=== PATIENT | male | born 1945 | race Two or more races ===

== ENCOUNTER 2017-07-05 22:59 | Inpatient (IN) | payer MEDICARE, MEDICAID ==
[~2017-07-05] VITALS: Ht 172.7 cm; Wt 80.5 kg
[2017-07-05 22:35] VITALS: BP 139/64
[2017-07-06] VITALS (14 sets, daily range): BP systolic 117–157; BP diastolic 64–96
[2017-07-06] MEDS ORDERED: ACET-2178 PO (00:01)
[2017-07-06] MEDS ORDERED: PANT40TA4 IVP (00:01)
[2017-07-06] MEDS ORDERED: TEMA15CA PO (00:01)
[2017-07-06] MEDS ORDERED: SIMV10TA6 PO (00:01)
[2017-07-06] MEDS ORDERED: METF500T4 PO (00:01)
[2017-07-06] MEDS ORDERED: LEVO50TA8 PO (00:01)
[2017-07-06] MEDS ORDERED: VANC1PLA IV (00:01)
[2017-07-06] MEDS ORDERED: PIPE3.377 IV (00:01)
[2017-07-06] MEDS ORDERED: ALLO100T PO (00:01)
[2017-07-06] MEDS ORDERED: GUAI-735 PO (00:01)
[2017-07-06] MEDS ORDERED: AMLO10TA80 PO (00:01)
[2017-07-06] MEDS ORDERED: LOSA50TA20 PO (00:01)
[2017-07-06] MEDS ORDERED: CLON0.1T PO (00:01)
[2017-07-06] MEDS ORDERED: METH4TAB17 IVP (00:01)
[2017-07-06] MEDS ORDERED: GLUC1VIA6 IM (00:01)
[2017-07-06] MEDS ORDERED: [UNRECOGNIZED DRUG - OTHER] PO SCH (00:30)
[2017-07-06] MEDS ORDERED: [UNRECOGNIZED DRUG - OTHER] IV SCH (00:30)
[2017-07-06] MEDS ORDERED: [UNRECOGNIZED DRUG - OTHER] IV SCH (00:30)
[2017-07-06] MEDS ORDERED: ACETAMINOPHEN 325MG TABLET PO PRN (00:30)
[2017-07-06] MEDS ORDERED: CODEINE PHOS PO SCH (00:30)
[2017-07-06] MEDS ORDERED: DEXT 5%/0.45% NACL 1000ML 1,000 ML IV SCH (00:30)
[2017-07-06] MEDS ORDERED: GUAIFENESIN PO SCH (00:30)
[2017-07-06] MEDS ORDERED: VANCOMYCIN HCL IN DEXTROSE IV SCH (00:30)
[2017-07-06] MEDS ORDERED: GUAIFENESIN-DM 200MG-20MG/10ML UDC PO PRN (01:15)
[2017-07-06] MEDS ORDERED: DEXTROSE 50% WATER 50ML SYRINGE IV PRN (02:45)
[2017-07-06] MEDS: IPRATROPIUM/ALBUTEROL 0.5-3(2.5)MG/3ML NEB HHN SCH ×5 (04:29→21:25)
[2017-07-06] MEDS ORDERED: PIPERACILLIN/TAZ 3.375G PREMIX 50 ML IV NR (05:00)
[2017-07-06 05:53] LABS: INR 1.1
[2017-07-06 05:55] LABS: BASOPHILS % 0.3 % (0.0-2.0); EOSINOPHILS % 1.3 % (0.0-5.0); HEMATOCRIT. 35.8 % (42.0-52.0); HEMOGLOBIN. 11.9 g/dL (14.0-18.0); LYMPHOCYTES % 10.5 % (20.0-50.0); MEAN CORPUSCULAR HEMOGLOBIN 30.2 pg (28.0-32.0); MEAN CORPUSCULAR VOLUME 91.1 fL (80.0-94.0); MEAN PLATELET VOLUME 9.5 fl (7.4-10.4); NEUTROPHILS % 82.9 % (40.0-76.0); PLATELET 171 x1000/uL (130-400); RED BLOOD CELL COUNT 3.93 mill/uL (4.7-6.1); RED CELL DISTRIBUTION WIDTH 14.9 % (11.6-14.6)
[2017-07-06] MEDS ORDERED: VANCOMYCIN 1 G PREMIX 200 ML IV NR (06:00)
[2017-07-06] MEDS: BLOOD SUGAR DIAGNOSTIC STRIP TEST SCH ×4 (06:09→21:00)
[2017-07-06 06:35] LABS: CHLORIDE 102 mEq/L (98-107)
[2017-07-06] MEDS: LEVOTHYROXINE SODIUM 50MCG TABLET PO SCH (06:37)
[2017-07-06] MEDS: METFORMIN HCL 500MG TABLET PO SCH ×2 (07:50→17:50)
[2017-07-06] MEDS ORDERED: METFORMIN HCL 500MG TABLET PO NR (07:50)
[2017-07-06] MEDS: INSULIN LISPRO 100 UNITS/ML SUBCUT SCH ×4 (07:50→21:00)
[2017-07-06] MEDS: METHYLPREDNISOLONE SOD SUCC 40 MG/ML VIAL IV SCH (08:43)
[2017-07-06] MEDS: PANTOPRAZOLE SODIUM 40 MG/VIAL IV SCH (08:43)
[2017-07-06] MEDS: ALLOPURINOL 100 MG TABLET PO SCH (09:00)
[2017-07-06] MEDS: CLONIDINE 0.1MG TABLET PO SCH ×2 (09:00→21:00)
[2017-07-06] MEDS: LOSARTAN POTASSIUM 50 MG TABLET PO SCH ×2 (09:00→21:00)
[2017-07-06] MEDS: AMLODIPINE 10MG TABLET PO SCH (10:31)
[2017-07-06 11:42] LABS: T4 FREE 1.33 ng/dL (0.76-1.46)
[2017-07-06] MEDS ORDERED: PIPERACILLIN/TAZ 3.375G PREMIX 50 ML IV SCH (13:30)
[2017-07-06] MEDS ORDERED: NEOSTIGMINE METHYLSULFATE 1MG/ML 10 ML VIAL ONE (16:21)
[2017-07-06] MEDS ORDERED: ROCURONIUM BROMIDE 10MG/ML VIAL 5ML IV ONE (16:21)
[2017-07-06] MEDS ORDERED: FENTANYL CITRATE/PF 50MCG/ML 2ML VIAL ONE ×2 (16:21→17:36)
[2017-07-06] MEDS ORDERED: PROPOFOL 200MG/20ML VIAL IV ONE (16:22)
[2017-07-06] MEDS ORDERED: GLYCOPYRROLATE 0.2 MG/ML 2ML VIAL ONE ×2 (16:22→17:22)
[2017-07-06] MEDS ORDERED: MIDAZOLAM HCL 2 MG/2 ML VIAL ONE (16:22)
[2017-07-06] MEDS ORDERED: DEXAMETHASONE 4MG/ML 1ML VIAL ONE (16:23)
[2017-07-06] MEDS ORDERED: SUCCINYLCHOLINE CHLORIDE 200MG/10ML VIAL IV ONE (16:23)
[2017-07-06] MEDS ORDERED: ONDANSETRON HCL 4MG/2ML VIAL ONE (16:23)
[2017-07-06] MEDS ORDERED: LABETALOL HCL 5MG/ML VIAL 20ML IV ONE (16:28)
[2017-07-06] MEDS ORDERED: LIDOCAINE HCL/PF 1% 10 MG/ML 5ML VIAL ONE (16:29)
[2017-07-06 16:53] LABS: CREATINE KINASE 31 IU/L (39-308)
[2017-07-06 16:54] LABS: CREATINE KINASE MB FRACTION 1.1 ng/mL (0.5-3.6)
[2017-07-06] MEDS ORDERED: ONDANSETRON HCL 4MG/2ML VIAL IV PRN (17:00)
[2017-07-06] MEDS ORDERED: LABETALOL 5MG/ML SYR 20 MG/4 ML SYRINGE IV PRN (17:00)
[2017-07-06] MEDS ORDERED: MEDICATION NOT ON FORMULARY EA (Simvastatin 1 TAB) PO SCH (17:00)
[2017-07-06] MEDS ORDERED: MEPERIDINE HCL/PF 25MG/ML CPJ IV PRN (17:00)
[2017-07-06] MEDS ORDERED: SKIN ADHESIVE 0.7 GM EA TOP ONE (17:12)
[2017-07-06] MEDS ORDERED: BACITRACIN ZINC 15GM TUBE TOP ONE (17:12)
[2017-07-06] MEDS: HYDROMORPHONE HCL/PF 2MG/ML CPJ IV PRN ×2 (18:13→19:00)
[2017-07-06 20:51] LABS: BG BASE EXCESS 3.4 mmol/L (-2.0-2.0); BG DEOXYHEMOGLOBIN 3.6 % (0.0-5.0); BG FRACTION INSPIRED OXYGEN 60; BG HCO3 ACT 30.7 mmol/L (22.0-26.0); BG METHEMOGLOBIN 0.2 % (0.0-1.5); BG OXYGEN SATURATION 96.4 % (92.0-98.5); BG OXYHEMOGLOBIN 95.2 % (94.0-97.0); BG PCO2 57.8 mmHg (35.0-45.0); BG PH 7.343 (7.350-7.450); BG PO2 97.9 mmHg (75.0-100.0); BG SAMPLE SITE LEFT RADIAL; BG TOTAL HEMOGLOBIN 14.3 g/dL (12.0-18.0); BG VENT MODE MASK - SIMPLE
[2017-07-06] MEDS: ATORVASTATIN CALCIUM 10MG TABLET PO SCH (21:00)
[2017-07-06] MEDS: DEXT 5%/0.45% NACL KCL 20MEQ/L 1,000 ML IV SCH (21:56)
[2017-07-06 22:41] LABS: HEMATOCRIT. 37.7 % (42.0-52.0); HEMOGLOBIN. 12.3 g/dL (14.0-18.0); MEAN CORPUSCULAR HEMOGLOBIN 30.1 pg (28.0-32.0); MEAN CORPUSCULAR VOLUME 92.2 fL (80.0-94.0); MEAN PLATELET VOLUME 9.3 fl (7.4-10.4); PLATELET 195 x1000/uL (130-400); RED BLOOD CELL COUNT 4.09 mill/uL (4.7-6.1); RED CELL DISTRIBUTION WIDTH 14.7 % (11.6-14.6)
[2017-07-06 22:46] LABS: CHLORIDE 103 mEq/L (98-107)
[2017-07-06 22:47] LABS: PARTIAL THROMBOPLASTIN TIME 21.1 sec (23.4-31.0); PROTHROMBIN TIME 10.8 sec (9.4-11.6)
[2017-07-06 22:58] LABS: CREATINE KINASE 238 IU/L (39-308)
[2017-07-06 22:59] LABS: CREATINE KINASE MB FRACTION 2.3 ng/mL (0.5-3.6)
[2017-07-06 23:13] LABS: PLATELET ESTIMATE NORMAL
[2017-07-06] MEDS: PIPERACILLIN/TAZ 3.375G PREMIX 50 ML IV SCH (23:44)
[2017-07-07] VITALS (23 sets, daily range): BP systolic 108–175; BP diastolic 60–99
[2017-07-07] MEDS: IPRATROPIUM/ALBUTEROL 0.5-3(2.5)MG/3ML NEB HHN SCH ×6 (00:20→20:12)
[2017-07-07] MEDS: METFORMIN HCL 500MG TABLET PO SCH ×2 (05:46→17:17)
[2017-07-07] MEDS: PIPERACILLIN/TAZ 3.375G PREMIX 50 ML IV SCH ×3 (05:46→17:17)
[2017-07-07] MEDS: BLOOD SUGAR DIAGNOSTIC STRIP TEST SCH ×4 (06:09→21:54)
[2017-07-07] MEDS: INSULIN LISPRO 100 UNITS/ML SUBCUT SCH ×4 (06:15→21:52)
[2017-07-07 06:39] LABS: CREATINE KINASE 257 IU/L (39-308)
[2017-07-07 06:40] LABS: CREATINE KINASE MB FRACTION 1.7 ng/mL (0.5-3.6)
[2017-07-07] MEDS: PANTOPRAZOLE SODIUM 40 MG/VIAL IV SCH (10:00)
[2017-07-07] MEDS: ALLOPURINOL 100 MG TABLET PO SCH (10:00)
[2017-07-07] MEDS: AMLODIPINE 10MG TABLET PO SCH (10:00)
[2017-07-07] MEDS: LOSARTAN POTASSIUM 50 MG TABLET PO SCH ×2 (10:00→21:26)
[2017-07-07] MEDS: CLONIDINE 0.1MG TABLET PO SCH ×2 (10:00→21:25)
[2017-07-07] MEDS: METHYLPREDNISOLONE SOD SUCC 40 MG/ML VIAL IV SCH (10:00)
[2017-07-07] MEDS: DEXT 5%/0.45% NACL KCL 20MEQ/L 1,000 ML IV SCH (10:02)
[2017-07-07] MEDS ORDERED: MORPHINE SULFATE 4 MG/ML CPJ (NOT FOR IM USE) IV PRN (14:45)
[2017-07-07] MEDS ORDERED: MORPHINE SULFATE 4 MG/ML CPJ (NOT FOR IM USE) IV SCH (15:00)
[2017-07-07 16:13] LABS: HEMATOCRIT. 35.7 % (42.0-52.0); HEMOGLOBIN. 11.8 g/dL (14.0-18.0); MEAN CORPUSCULAR HEMOGLOBIN 30.5 pg (28.0-32.0); MEAN CORPUSCULAR VOLUME 92.2 fL (80.0-94.0); MEAN PLATELET VOLUME 9.2 fl (7.4-10.4); PLATELET 175 x1000/uL (130-400); RED BLOOD CELL COUNT 3.87 mill/uL (4.7-6.1); RED CELL DISTRIBUTION WIDTH 14.2 % (11.6-14.6)
[2017-07-07 16:21] LABS: CHLORIDE 98 mEq/L (98-107)
[2017-07-07] MEDS: TEMAZEPAM 15MG CAPSULE PO SCH ×2 (17:00→17:17)
[2017-07-07 17:08] LABS: PLATELET ESTIMATE NORMAL
[2017-07-07] MEDS ORDERED: HYDROCODONE/ACETAMINOPHEN 5/325MG TABLET PO PRN (18:00)
[2017-07-07] MEDS ORDERED: HYDROCODONE/ACETAMINOPHEN 10/325MG TABLET PO PRN (18:15)
[2017-07-07] MEDS: ATORVASTATIN CALCIUM 10MG TABLET PO SCH (21:26)
[2017-07-08] VITALS (28 sets, daily range): BP systolic 123–179; BP diastolic 69–135
[2017-07-08] MEDS: IPRATROPIUM/ALBUTEROL 0.5-3(2.5)MG/3ML NEB HHN SCH ×6 (00:03→20:21)
[2017-07-08] MEDS: PIPERACILLIN/TAZ 3.375G PREMIX 50 ML IV SCH ×4 (01:16→17:32)
[2017-07-08] MEDS: DEXT 5%/0.45% NACL KCL 20MEQ/L 1,000 ML IV SCH ×2 (01:17→15:18)
[2017-07-08] MEDS: MORPHINE SULFATE 4 MG/ML CPJ (NOT FOR IM USE) IV PRN ×5 (03:43→22:28)
[2017-07-08 05:57] LABS: HEMATOCRIT 33.6 % (42.0-52.0); HEMOGLOBIN 11.4 g/dL (14.0-18.0); MEAN CORPUSCULAR HEMOGLOBIN 31.1 pg (28.0-32.0); MEAN CORPUSCULAR VOLUME 91.9 fL (80.0-94.0); PLATELET 165 x1000/uL (130-400); RED BLOOD CELL COUNT 3.65 mill/uL (4.7-6.1); RED CELL DISTRIBUTION WIDTH 14.8 % (11.6-14.6)
[2017-07-08 06:03] LABS: CHLORIDE 100 mEq/L (98-107)
[2017-07-08] MEDS: BLOOD SUGAR DIAGNOSTIC STRIP TEST SCH ×4 (06:30→21:00)
[2017-07-08] MEDS: INSULIN LISPRO 100 UNITS/ML SUBCUT SCH ×4 (06:31→22:21)
[2017-07-08] MEDS: METFORMIN HCL 500MG TABLET PO SCH ×2 (06:32→17:32)
[2017-07-08] MEDS: LEVOTHYROXINE SODIUM 50MCG TABLET PO SCH (06:35)
[2017-07-08] MEDS: LOSARTAN POTASSIUM 50 MG TABLET PO SCH ×2 (08:43→22:06)
[2017-07-08] MEDS: AMLODIPINE 10MG TABLET PO SCH (08:44)
[2017-07-08] MEDS: ALLOPURINOL 100 MG TABLET PO SCH (08:45)
[2017-07-08] MEDS: CLONIDINE 0.1MG TABLET PO SCH ×2 (08:45→22:06)
[2017-07-08] MEDS: PANTOPRAZOLE SODIUM 40 MG/VIAL IV SCH (08:46)
[2017-07-08] MEDS: METHYLPREDNISOLONE SOD SUCC 40 MG/ML VIAL IV SCH (08:46)
[2017-07-08] MEDS ORDERED: ENOXAPARIN 40MG/0.4ML SYR SUBCUT SCH (16:30)
[2017-07-08] MEDS ORDERED: TEMAZEPAM 15MG CAPSULE PO PRN (21:00)
[2017-07-08] MEDS: ATORVASTATIN CALCIUM 10MG TABLET PO SCH (22:06)
[2017-07-08] MEDS: INSULIN GLARGINE UD 100 UNITS/ML SYR SUBCUT SCH (22:46)
[2017-07-09] VITALS (23 sets, daily range): BP systolic 129–178; BP diastolic 61–93
[2017-07-09] MEDS: IPRATROPIUM/ALBUTEROL 0.5-3(2.5)MG/3ML NEB HHN SCH ×7 (00:52→21:28)
[2017-07-09] MEDS: INSULIN LISPRO 100 UNITS/ML SUBCUT SCH ×4 (06:27→22:17)
[2017-07-09] MEDS: BLOOD SUGAR DIAGNOSTIC STRIP TEST SCH ×4 (06:28→22:13)
[2017-07-09] MEDS: PIPERACILLIN/TAZ 3.375G PREMIX 50 ML IV SCH ×5 (06:28→23:43)
[2017-07-09] MEDS: METFORMIN HCL 500MG TABLET PO SCH ×2 (06:28→17:18)
[2017-07-09] MEDS: LEVOTHYROXINE SODIUM 50MCG TABLET PO SCH (06:28)
[2017-07-09] MEDS: DEXT 5%/0.45% NACL KCL 20MEQ/L 1,000 ML IV SCH ×2 (06:34→22:13)
[2017-07-09] MEDS: METHYLPREDNISOLONE SOD SUCC 40 MG/ML VIAL IV SCH (08:12)
[2017-07-09] MEDS: AMLODIPINE 10MG TABLET PO SCH (08:12)
[2017-07-09] MEDS: CLONIDINE 0.1MG TABLET PO SCH ×2 (08:12→22:12)
[2017-07-09] MEDS: ALLOPURINOL 100 MG TABLET PO SCH (08:13)
[2017-07-09] MEDS: FAMOTIDINE 20MG TABLET PO SCH ×2 (08:13→22:12)
[2017-07-09] MEDS: LOSARTAN POTASSIUM 50 MG TABLET PO SCH ×2 (08:13→22:12)
[2017-07-09] MEDS: ATORVASTATIN CALCIUM 10MG TABLET PO SCH (22:12)
[2017-07-09] MEDS: INSULIN GLARGINE UD 100 UNITS/ML SYR SUBCUT SCH (22:17)
[2017-07-10] VITALS (11 sets, daily range): BP systolic 118–169; BP diastolic 70–89
[2017-07-10] MEDS: IPRATROPIUM/ALBUTEROL 0.5-3(2.5)MG/3ML NEB HHN SCH ×6 (00:27→20:22)
[2017-07-10] MEDS: PIPERACILLIN/TAZ 3.375G PREMIX 50 ML IV SCH ×3 (05:18→17:26)
[2017-07-10 06:58] LABS: BASOPHILS % 0.3 % (0.0-2.0); EOSINOPHILS % 3.2 % (0.0-5.0); HEMATOCRIT. 35.6 % (42.0-52.0); LYMPHOCYTES % 14.2 % (20.0-50.0); MEAN CORPUSCULAR HEMOGLOBIN 30.9 pg (28.0-32.0); MEAN CORPUSCULAR VOLUME 91.4 fL (80.0-94.0); MEAN PLATELET VOLUME 9.3 fl (7.4-10.4); MONOCYTES % 7.9 % (2.0-8.0); NEUTROPHILS % 74.4 % (40.0-76.0); PLATELET 191 x1000/uL (130-400); RED BLOOD CELL COUNT 3.89 mill/uL (4.7-6.1)
[2017-07-10 07:18] LABS: CHLORIDE 97 mEq/L (98-107)
[2017-07-10] MEDS: BLOOD SUGAR DIAGNOSTIC STRIP TEST SCH ×4 (08:14→21:00)
[2017-07-10] MEDS: ALLOPURINOL 100 MG TABLET PO SCH (09:09)
[2017-07-10] MEDS: LOSARTAN POTASSIUM 50 MG TABLET PO SCH ×2 (09:09→21:34)
[2017-07-10] MEDS: METFORMIN HCL 500MG TABLET PO SCH ×2 (09:10→17:26)
[2017-07-10] MEDS: AMLODIPINE 10MG TABLET PO SCH (09:10)
[2017-07-10] MEDS: FAMOTIDINE 20MG TABLET PO SCH ×2 (09:10→21:35)
[2017-07-10] MEDS: METHYLPREDNISOLONE SOD SUCC 40 MG/ML VIAL IV SCH (09:11)
[2017-07-10] MEDS: LEVOTHYROXINE SODIUM 50MCG TABLET PO SCH (09:11)
[2017-07-10] MEDS: CLONIDINE 0.1MG TABLET PO SCH ×2 (09:11→21:34)
[2017-07-10] MEDS: INSULIN LISPRO 100 UNITS/ML SUBCUT SCH ×4 (09:12→21:35)
[2017-07-10] MEDS ORDERED: DEXT 5%/0.45% NACL KCL 20MEQ/L 1,000 ML IV SCH (12:00)
[2017-07-10] MEDS ORDERED: ENOXAPARIN 40MG/0.4ML SYR SUBCUT SCH (18:13)
[2017-07-10] MEDS: INSULIN GLARGINE UD 100 UNITS/ML SYR SUBCUT SCH (21:35)
[2017-07-10] MEDS: ATORVASTATIN CALCIUM 10MG TABLET PO SCH (21:35)
[2017-07-11] VITALS (10 sets, daily range): BP systolic 103–150; BP diastolic 52–120
[2017-07-11] MEDS: IPRATROPIUM/ALBUTEROL 0.5-3(2.5)MG/3ML NEB HHN SCH ×5 (00:21→15:18)
[2017-07-11] MEDS: PIPERACILLIN/TAZ 3.375G PREMIX 50 ML IV SCH ×3 (00:27→12:23)
[2017-07-11] MEDS: BLOOD SUGAR DIAGNOSTIC STRIP TEST SCH ×2 (07:37→12:18)
[2017-07-11] MEDS: AMLODIPINE 10MG TABLET PO SCH (08:52)
[2017-07-11] MEDS: FAMOTIDINE 20MG TABLET PO SCH (08:52)
[2017-07-11] MEDS: CLONIDINE 0.1MG TABLET PO SCH (08:52)
[2017-07-11] MEDS: METHYLPREDNISOLONE SOD SUCC 40 MG/ML VIAL IV SCH (08:52)
[2017-07-11] MEDS: METFORMIN HCL 500MG TABLET PO SCH (08:52)
[2017-07-11] MEDS: ALLOPURINOL 100 MG TABLET PO SCH (08:53)
[2017-07-11] MEDS: LEVOTHYROXINE SODIUM 50MCG TABLET PO SCH (08:53)
[2017-07-11] MEDS: LOSARTAN POTASSIUM 50 MG TABLET PO SCH (08:53)
[2017-07-11] MEDS: INSULIN LISPRO 100 UNITS/ML SUBCUT SCH ×2 (08:54→12:24)
== END 2017-07-11 17:15 | DRG 853 ==
LOC: 6WST 22:59 → MICUNO 07-06 17:53 → MICUSO 07-07 11:50 → 5EST 07-09 20:42
PROVIDERS: ADMIT Internal Medicine; ATTEND Internal Medicine
PROC: 0BBC4ZX Excision of Right Upper Lung Lobe, Percutaneous Endoscopic Approach, Diagnostic (ICD-10-PCS; principal; 2017-07-08)
PROC: 0BJ08ZZ Inspection of Tracheobronchial Tree, Via Natural or Artificial Opening Endoscopic (ICD-10-PCS; 2017-07-08)
PROC: 0W9930Z Drainage of Right Pleural Cavity with Drainage Device, Percutaneous Approach (ICD-10-PCS; 2017-07-08)
DX: A41.9 Sepsis, unspecified organism (principal); J18.9 Pneumonia, unspecified organism; J84.9 Interstitial pulmonary disease, unspecified; J90 Pleural effusion, not elsewhere classified; E11.65 Type 2 diabetes mellitus with hyperglycemia; J93.83 Other pneumothorax; E03.9 Hypothyroidism, unspecified; I10 Essential (primary) hypertension; Z87.891 Personal history of nicotine dependence; Z79.899 Other long term (current) drug therapy
CPT/HCPCS: 36415; 36600; 71045; 71250; 74018; 80048; 80061; 80202; 82375; 82550; 82553; 82805; 82962; 83036; 83880; 84439; 84443; 84484; 85025; 85027; 85379; 85610; 85730; 86850; 86900; 87070; 87075; 87205; 88108; 88305; 88312; 93005; 93306; 93970; 94640; A7042; C9113; J0330; J1100; J1170; J1650; J1815; J2250; J2270; J2405; J2543; J2704; J2710; J2920; J3010; J3370; J3490; J7620